=== PATIENT | male | born 1935 ===

== ENCOUNTER 2021-05-19 19:39 | Outpatient (REF) | payer MEDICARE, SELFPAY ==
[2021-05-21 18:56] LABS: PSA, Diagnostic 1.8 ng/mL (0.0-6.5)
== END 2021-05-19 19:40 | disposition home or self-care (01) ==
LOC: LBN 19:39
PROVIDERS: Referring Provider Internal Medicine Hematology & Oncology; Visit Provider Family Medicine
DX: C61 Malignant neoplasm of prostate (principal)
CPT/HCPCS: 84153

== ENCOUNTER 2023-07-10 15:28 | Outpatient (REF) | payer MEDICARE, SELFPAY ==
[2023-07-10 20:25] LABS: Anion Gap 11.1 mmol/L (3-11); BUN 15 mg/dL (7-18); CO2 24.9 mmol/L (21.0-32.0); Calcium 9.5 mg/dL (8.5-10.1); Chloride 106 mmol/L (98-107); Estimated GFR 72.84 (mL/min/1.73m2); Glucose 166 mg/dL (74-106); Potassium 4.2 mmol/L (3.5-5.1); Sodium 142 mmol/L (136-145)
[2023-07-10 20:29] LABS: Hemoglobin A1C 7.7 % (<5.7)
== END 2023-07-10 15:29 | disposition home or self-care (01) ==
LOC: LBN 15:28
PROVIDERS: Referring Provider Family Medicine; Visit Provider Family Medicine
DX: N17.9 Acute kidney failure, unspecified (principal); E87.6 Hypokalemia; R73.09 Other abnormal glucose
CPT/HCPCS: 80048; 83036